=== PATIENT | female | born 1990 ===

== ENCOUNTER 2024-07-13 14:37 | Outpatient (CLI) | payer OTHER | END 2024-07-13 14:40 | disposition home or self-care (01) | LOC: PRENATAL 14:37 | PROVIDERS: ATTEND Obstetrics & Gynecology Maternal & Fetal Medicine | DX: O44.00 Complete placenta previa NOS or without hemorrhage, unspecified trimester (principal); O09.519 Supervision of elderly primigravida, unspecified trimester; Z3A.22 22 weeks gestation of pregnancy ==

== ENCOUNTER → 2024-09-29 | Outpatient (CLI) | payer OTHER | END | disposition home or self-care (01) | LOC: PRENATAL 14:05 | PROVIDERS: ATTEND Obstetrics & Gynecology Maternal & Fetal Medicine | DX: O26.849 Uterine size-date discrepancy, unspecified trimester (principal); O36.8199 Decreased fetal movements, unspecified trimester, other fetus; O09.519 Supervision of elderly primigravida, unspecified trimester; Z3A.33 33 weeks gestation of pregnancy ==

== ENCOUNTER 2024-10-27 10:15 | Outpatient (CLI) | payer OTHER | END 2024-10-27 10:16 | disposition home or self-care (01) | LOC: PRENATAL 10:15 | PROVIDERS: ATTEND Obstetrics & Gynecology Maternal & Fetal Medicine | DX: O26.849 Uterine size-date discrepancy, unspecified trimester (principal); O36.8199 Decreased fetal movements, unspecified trimester, other fetus; O09.519 Supervision of elderly primigravida, unspecified trimester; Z3A.36 36 weeks gestation of pregnancy ==